=== PATIENT | male | born 1960 | race Caucasian/White ===

== ENCOUNTER 2020-08-23 13:00 | Outpatient (CLI) | payer MEDICARE, MEDICAID, SELFPAY | END 2020-08-23 13:01 | disposition home or self-care (01) | LOC: WOUND 13:01 | PROVIDERS: Family Provider Physician Assistant Medical; Visit Provider Nurse Practitioner Family | DX: E11.621 Type 2 diabetes mellitus with foot ulcer (principal); L97.512 Non-pressure chronic ulcer of other part of right foot with fat layer exposed | CPT/HCPCS: 11042; 87070; 87077; 87176; 87186; 87205; G0463; L3260 ==

== ENCOUNTER 2020-08-30 13:08 | Outpatient (CLI) | payer MEDICARE, MEDICAID, SELFPAY | END 2020-08-30 13:09 | disposition home or self-care (01) | LOC: WOUND 13:09 | PROVIDERS: Family Provider Physician Assistant Medical; Visit Provider Nurse Practitioner Family | DX: E11.621 Type 2 diabetes mellitus with foot ulcer (principal); L97.512 Non-pressure chronic ulcer of other part of right foot with fat layer exposed | CPT/HCPCS: 11042 ==

== ENCOUNTER 2020-09-06 11:04 | Outpatient (CLI) | payer MEDICARE, MEDICAID, SELFPAY ==
--- NOTE | 2020-09-06 11:11 | XR_ITS ---
WS: [id number] FOOT RIGHT TECHNIQUE: 3 views of the right foot CLINICAL INFORMATION: PAIN, REDNESS, NONHEALING ULCER COMPARISON: None. FINDINGS: Osteopenia. Mild soft tissue edema. Plantar and Achilles calcaneal spurring. Soft tissue ulceration a long the first digit. No evidence of acute osteomyelitis. XR/XR foot RT min 3V* [id number] IMPRESSION: No evidence of acute osteomyelitis.
== END 2020-09-06 11:05 | disposition home or self-care (01) ==
LOC: RADWPI 11:10
PROVIDERS: PCP Physician Assistant Medical; Visit Provider Nurse Practitioner Family
DX: M79.671 Pain in right foot (principal); L53.9 Erythematous condition, unspecified; L97.519 Non-pressure chronic ulcer of other part of right foot with unspecified severity; E11.621 Type 2 diabetes mellitus with foot ulcer; L97.512 Non-pressure chronic ulcer of other part of right foot with fat layer exposed
CPT/HCPCS: 11042; 73630; L4387

== ENCOUNTER 2020-09-06 13:36 | Outpatient (CLI) | payer MEDICARE, MEDICAID, SELFPAY | END 2020-09-06 13:37 | disposition home or self-care (01) | LOC: WOUND 13:38 | PROVIDERS: Visit Provider Thoracic Surgery (Cardiothoracic Vascular Surgery) | DX: E11.621 Type 2 diabetes mellitus with foot ulcer (principal); L97.512 Non-pressure chronic ulcer of other part of right foot with fat layer exposed | CPT/HCPCS: 11042; L4387 ==

== ENCOUNTER 2020-09-13 13:37 | Outpatient (CLI) | payer MEDICARE, MEDICAID, SELFPAY | END 2020-09-13 13:38 | disposition home or self-care (01) | LOC: WOUND 13:39 | PROVIDERS: Visit Provider Nurse Practitioner Family | DX: E11.621 Type 2 diabetes mellitus with foot ulcer (principal); L97.511 Non-pressure chronic ulcer of other part of right foot limited to breakdown of skin | CPT/HCPCS: 11042 ==